=== PATIENT | male | born 1950 ===

== ENCOUNTER 2017-05-01 09:56 | Day surgery (SDC) | payer MEDICARE ==
[~2017-05-01 09:56] MED LIST: Buffered Lidocaine 0.9% SYRIN* 5 ML/SYR SYRINGE INTRADERM ONE
[2017-05-01] MEDS ORDERED: Midazolam* 1 MG/ML 2 ML VIAL (2 MG) ONE (10:36)
[2017-05-01 11:23] VITALS: BP 127/73
[2017-05-01] MEDS ORDERED: acetaZOLAMIDE TAB* 250 MG ONE (11:56)
[2017-05-01] MEDS ORDERED: Lidocaine 1% MPF* 2 ML VIAL ONE (11:56)
[2017-05-01] MEDS ORDERED: Neomycin/Polymy/Dex OPHTH.OIN* 3.5 GM ONE (11:56)
[2017-05-01] MEDS ORDERED: Cyclopentolate 1% OPTH.SOL* 2 ML BTL ONE (11:56)
[2017-05-01] MEDS ORDERED: Povidone Iodine 5% OPTH* 30 ML BTL ONE (11:56)
[2017-05-01] MEDS ORDERED: Tropicamide 1% OPTH.SOL* BTL ONE (11:56)
[2017-05-01] MEDS ORDERED: Phenylephrine 2.5% OPTH.SOL* 2 ML BTL ONE (11:56)
[2017-05-01] MEDS ORDERED: Tetracaine 0.5% OPTH.SOL 4 ML* 1 DROP BTL ONE (11:57)
[2017-05-01] MEDS ORDERED: Ketorolac 0.5% OPHTH (NF) 0.5 % 5 ML BTL ONE (11:57)
--- NOTE | 2017-05-02 11:24 | OP ---
DATE OF OPERATION: 05/01/17 - [facility] DATE OF : 52 SURGEON: Ish Naqvi MD ANESTHESIA: Monitored anesthesia care. PRE-OP DIAGNOSIS: Cataract, right eye. POST-OP DIAGNOSIS: Cataract, right eye. OPERATIVE PROCEDURE: Extracapsular cataract extraction of the right eye with intraocular lens implant. IMPLANTS: SN60WF 18.5 diopter lens to the right eye. COMPLICATIONS: None. DESCRIPTION OF PROCEDURE: The patient was given phenylephrine 2.5% and cyclopentolate 1% eye drops to the operative eye in the preoperative area. The patient was brought to the operating room where a time-out was taken to identify the correct patient, site and side of surgery. The patient's right eye was prepped and draped in the usual sterile fashion with 5% Betadine. A second time-out was taken to verify the correct patient, site and side of surgery, and correct lens selection. A lid speculum was placed to the right eye. A 1-mm paracentesis blade was used to make a clear corneal incision in the superotemporal position. Preservative-free 1% lidocaine was injected into the anterior chamber. DisCoVisc was then injected into the anterior chamber. A 2.75 mm keratome blade was used to make a triplanar incision at the inferotemporal position. A cystotome initiated a capsulorrhexis which was completed with Utrata forceps in a continuous and curvilinear manner. Hydrodissection of the lens was performed with BSS on a cannula. The lens could be spun in the capsular bag. The phacoemulsification handpiece was used with a divide and conquer technique to remove the nucleus in its entirety with 9.03 CDE. The I/A handpiece then removed the residual cortical lens material. DisCoVisc was injected to inflate the capsular bag. The planned SN60WF 18.5 diopter lens was injected into the capsular bag. The residual DisCoVisc was removed from the eye with the I/A handpiece. The corneal incisions were hydrated and no leaks occurred at physiologic pressure around 20 mmHg per palpation. The lid speculum was removed and drapes removed. Maxitrol ointment was placed to the surface of the operative eye. An adhesive patch and shield was then placed on the operative eye. The patient was taken to the postoperative area in stable condition. [id number]/[facility] #: [id number] [facility]
== END 2017-05-01 11:17 | disposition home or self-care (01) ==
LOC: OREAST 09:56
PROVIDERS: ATTEND Student in an Organized Health Care Education/Training Program
DX: H25.11 Age-related nuclear cataract, right eye (principal); H35.373 Puckering of macula, bilateral
CPT/HCPCS: A9270-GY; J2250; V2632

== ENCOUNTER 2017-05-08 10:03 | Day surgery (SDC) | payer OTHER ==
[~2017-05-08 10:03] MED LIST changes: +Acetaminophen TAB* 325 MG PO PRN; +Cyclopentolate 1% OPTH.SOL* 2 ML BTL ONE; +Ketorolac 0.5% OPHTH (NF) 0.5 % 5 ML BTL ONE; +Lidocaine 1% MPF* 2 ML VIAL ONE; +Neomycin/Polymy/Dex OPHTH.OIN* 3.5 GM ONE; +Phenylephrine 2.5% OPTH.SOL* 2 ML BTL ONE; +Povidone Iodine 5% OPTH* 30 ML BTL ONE; +Tetracaine 0.5% OPTH.SOL 4 ML* 1 DROP BTL ONE; +Tropicamide 1% OPTH.SOL* BTL ONE; +acetaZOLAMIDE TAB* 250 MG ONE
[2017-05-08] MEDS ORDERED: Midazolam* 1 MG/ML 2 ML VIAL (2 MG) ONE (10:56)
[2017-05-08 12:08] VITALS: BP 135/82
--- NOTE | 2017-05-09 07:19 | OP ---
DATE OF OPERATION: 05/08/17 - [facility] DATE OF : 52 SURGEON: Ish Naqvi MD ANESTHESIA: Monitored anesthesia care. PRE-OP DIAGNOSIS: Cataract, left eye. POST-OP DIAGNOSIS: Cataract, left eye. OPERATIVE PROCEDURE: Extracapsular cataract extraction of the left eye with intraocular lens implant. IMPLANTS: SN60WF 19.0 diopter lens to the left eye. COMPLICATIONS: None. DESCRIPTION OF PROCEDURE: The patient was given phenylephrine 2.5% and cyclopentolate 1% eye drops to the operative eye in the preoperative area. The patient was brought to the operating room, where a time-out was taken to identify the correct patient, site, and side of surgery. The patient's left eye was prepped and draped in the usual sterile fashion with 5% Betadine. A second time-out was taken to verify the correct patient, site, and side of the surgery and correct lens selection. A lid speculum was placed to the left eye. A 1-mm paracentesis blade was used to make a clear corneal incision in the inferotemporal position. Preservative free 1% lidocaine was injected into the anterior chamber. DisCoVisc was then injected into the anterior chamber. A 2.75-mm keratome blade was used to make a triplanar incision at the superotemporal position. A cystotome initiated a capsulorrhexis which was completed with Utrata forceps in a continuous and curvilinear manner. Hydrodissection of the lens was performed with BSS on a cannula. The lens could be spun in a capsular bag. The phacoemulsification handpiece was used with a [id number]-gwy-aywedck technique to remove to nucleus in its entirety with 17.85 CDE. The I/A handpiece then removed the residual cortical lens material. DisCoVisc was injected to inflate the capsular bag. The planned SN60WF 19.0 diopter lens was injected into the capsular bag. The residual DisCoVisc was removed from the eye with the I/A handpiece. The corneal incisions were hydrated and no leaks occurred at physiologic pressure around 20 mmHg per palpation. The lid speculum was removed and drapes removed. Maxitrol ointment was placed to the surface of the operative eye. An adhesive patch and shield was then placed on the operative eye. The patient was taken to the postoperative area in stable condition. [id number]/[facility] #: [id number] MTDD
== END 2017-05-08 12:03 | disposition home or self-care (01) ==
LOC: OREAST 10:03
PROVIDERS: ATTEND Student in an Organized Health Care Education/Training Program
DX: H25.12 Age-related nuclear cataract, left eye (principal); H35.373 Puckering of macula, bilateral
CPT/HCPCS: A9270-GY; J2250; V2632